=== PATIENT | female | born 1980 | race Caucasian/White ===

== ENCOUNTER 2024-06-26 17:59 | Emergency (ER) | payer OTHER ==
[~2024-06-26] VITALS: Ht 152.4 cm; Wt 92.5 kg
[2024-06-26] MEDS: LIDOCAINE 1% MDV 20ML VIAL SC ONE (23:20)
[2024-06-27] MEDS ORDERED: DOXY-440 PO (00:17)
[2024-06-27] MEDS: ONDANSETRON 4MG ORAL DISINTEGRATING TAB PO ONE (00:20)
[2024-06-27] MEDS: NORCO, ANEXSIA 5/325MG TABLET (HYDROcodone/ACETAMINOPHEN) PO ONE (00:20)
[2024-06-27] MEDS: DOXYCYCLINE HYCLATE 100MG TABLET PO ONE (00:20)
[2024-06-27] MEDS ORDERED: FLUC150T9 PO (00:21)
[2024-06-27 01:19] VITALS: BP 149/88; TEMP 98.2; O2SAT 98
== END 2024-06-27 01:20 | disposition home or self-care (01) ==
LOC: EEVIPCON 17:59 → M ED 17:59
DX: L03.115 Cellulitis of right lower limb (principal); L40.50 Arthropathic psoriasis, unspecified; Z91.040 Latex allergy status; Z91.018 Allergy to other foods; Z79.899 Other long term (current) drug therapy